=== PATIENT | female | born 1945 | race Caucasian/White ===

== ENCOUNTER 2022-03-31 00:15 | Observation (INO) | payer MEDICARE, OTHER ==
[2022-03-31] MEDS ORDERED: Dicyclomine 20 MG TAB ONE (01:15)
[2022-03-31] MEDS ORDERED: Ondansetron PF 4 MG/2 ML Vial ONE ×2 (01:15→10:00)
[2022-03-31 01:42] LABS: Hemoglobin 13.4 g/dL (12.0-16.0); Mean Corpuscular HGB CONC 33.1 g/dL (32.0-36.0); Mean Corpuscular Volume 90.5 fl (78.0-98.0); Mean Platelet Volume 7.4 fL (7.4-10.4); Platelet Count 228 10x3/uL (130-400); RBC Distribution Width 11.7 % (11.5-14.5); Red Blood Cell (RBC) Count 4.47 mill/uL (4.20-5.40); White Blood Cell (WBC) Count 19.8 10x3/uL (4.8-10.8)
[2022-03-31 01:56] LABS: Band 2 % (5-11); Lymphocytes 12 % (21-51); MDiff Complete? YES; Monocytes 16 % (0-10); Neutrophil 70 % (42-75); Platelet Morphology Comment Appears Adequate; RBC Morphology Normal
[2022-03-31 02:03] LABS: ALT (SGPT) 15 U/L (8-55); AST (SGOT) 22 U/L (5-34); Albumin 3.5 g/dL (3.4-4.8); Alkaline Phosphatase 75 U/L (40-110); Anion Gap 12 mmol/L (10-20); BUN (Urea Nitrogen) 14 mg/dL (9.8-20.1); Calc. Creatinine Clearance 0 mL/min (70-130); Carbon Dioxide 24 mmol/L (23-31); Chloride 101 mmol/L (98-107); Estimated GFR 91; Globulin 3.4 g/dL (2.4-3.5); Glucose 137 mg/dL (83-110); Lipase Less than 4 U/L (8-78); Potassium 3.7 mmol/L (3.5-5.1); Protein, Total 6.9 g/dL (5.8-8.1); Sodium 133 mmol/L (136-145)
[2022-03-31] MEDS ORDERED: Piperacillin/Tazobactam 4.5 GM VIAL ONE (03:09)
[2022-03-31 03:16] LABS: Bacteria/HPF 4+ HPF (None Seen); Bilirubin Negative (Negative); Blood, Urine 3+ (Negative); Clarity Clear (Clear); Glucose, Urine (Dipstick) Normal (Negative); Ketone, Urine 10 mg/dL (Negative); Leukocyte 25 Leu/uL (Negative); Nitrite 1+ (Negative); Protein, Urine (Dipstick) 20 mg/dL (Neg-Trace); Specific Gravity, Urine 1.042 (1.002-1.036); Squamous Epithelial 0-3 HPF (0-3); Urobilinogen Normal mg/dL (Less than 2); pH, Urine 5.5 (5.0-9.0)
[2022-03-31] MEDS ORDERED: Morphine 4 MG/ML VIAL SLOW IVP PRN (04:36)
[2022-03-31 05:08] VITALS: BMI 24.2
[2022-03-31] MEDS ORDERED: Morphine 4 MG/ML VIAL ONE (05:31)
[2022-03-31] MEDS: Piperacillin/Tazobactam 3.375 GM in Sodium Chloride 0.9% 100 ML IVPB SCH ×2 (08:55→16:37)
[2022-03-31] MEDS ORDERED: Bupivacaine/Epinephrine 0.25% 30 ML VIAL ONE (09:04)
[2022-03-31 09:08] LABS: SARS-CoV-2 NAA Rapid Test Not Detected (NotDetected)
[2022-03-31] MEDS ORDERED: Fentanyl 250 MCG/5 ML VIAL ONE (09:33)
[2022-03-31] MEDS ORDERED: Piperacillin/Tazobactam 3.375 GM VIAL ONE (09:54)
[2022-03-31] MEDS ORDERED: Rocuronium Bromide 10 MG/ML (10ML VIAL) ONE (10:00)
[2022-03-31] MEDS ORDERED: PROPOFOL 200 MG/20 ML VIAL ONE (10:00)
[2022-03-31] MEDS ORDERED: Glycopyrrolate 0.2 MG/ML 5 ML SYRINGE ONE (10:00)
[2022-03-31] MEDS ORDERED: Lidocaine 1% PF 5 ML VIAL ONE (10:00)
[2022-03-31] MEDS ORDERED: NEOSTIGMINE 3 MG/3 ML SYR 3 MG/3 ML SYRINGE ONE (10:00)
[2022-03-31] MEDS ORDERED: PHENYLEPHRINE-NS 100 MCG/ML 10 ML SYRINGE ONE (10:00)
[2022-03-31] MEDS ORDERED: Dexamethasone 20 MG/5 ML VIAL ONE (10:00)
[2022-03-31] MEDS ORDERED: Acetaminophen 325 MG TAB PO PRN (11:37)
[2022-03-31] MEDS ORDERED: Methocarbamol 500 MG TAB PO PRN (11:38)
[2022-03-31] MEDS ORDERED: Ondansetron HCl/PF 4 MG/2 ML Vial IVP PRN (11:40)
[2022-03-31] MEDS ORDERED: Promethazine HCl 25 MG/ML VIAL IM PRN (11:40)
[2022-03-31] MEDS ORDERED: Fentanyl 100 MCG/2 ML VIAL ONE ×2 (11:48→15:27)
[2022-03-31] MEDS ORDERED: Piperacillin/Tazobactam 3.375 GM in Sodium Chloride 0.9% 100 ML IVPB SCH (12:00)
[2022-03-31] MEDS ORDERED: Iopamidol-370 76% 500 ML 1 ML ONE (15:14)
[2022-03-31] MEDS ORDERED: Senokot S 8.6-50 MG TAB PO SCH (21:00)
[2022-03-31] MEDS: traMADol HCl 50 MG TAB PO PRN (21:12)
[2022-04-01] MEDS: Piperacillin/Tazobactam 3.375 GM in Sodium Chloride 0.9% 100 ML IVPB SCH (00:08)
[2022-04-01] MEDS: traMADol HCl 50 MG TAB PO PRN (05:27)
[2022-04-01 11:34] VITALS: BP 122/78; TEMP 98.2
== END 2022-04-01 16:41 | disposition home or self-care (01) ==
LOC: ERS 00:15 → SUATTDRO 00:15 → ERHOLD 04:20 → SURG A 08:12
PROVIDERS: ADMIT Surgery; ATTEND Surgery
PROC: 0FT44ZZ Resection of Gallbladder, Percutaneous Endoscopic Approach (ICD-10-PCS; principal; 2022-03-31)
DX: K81.2 Acute cholecystitis with chronic cholecystitis (principal); K82.A1 Gangrene of gallbladder in cholecystitis; K82.A2 Perforation of gallbladder in cholecystitis; K82.8 Other specified diseases of gallbladder; M43.16 Spondylolisthesis, lumbar region; K57.30 Diverticulosis of large intestine without perforation or abscess without bleeding; Z20.822 Contact with and (suspected) exposure to COVID-19
CPT/HCPCS: 47562; 74177; 76705; 80053; 83605; 83690; 84484; 85025; 93005; 94760; C1889; U0002; 36415; 81003; 81015; 88304; J1100; J2270; J2405; J2543; J2704; J3010; J3490; Q9967